=== PATIENT | female | born 2005 | race Two or more races ===

== ENCOUNTER 2025-03-03 20:36 | Emergency (ER) | payer OTHER ==
[2025-03-03] MEDS ORDERED: KETOROLAC TROMETHAMINE 30 MG VIAL ONE (21:12)
[2025-03-03] MEDS ORDERED: ONDANSETRON HCL 2 MG/ML VIAL ONE (21:12)
[2025-03-03] MEDS ORDERED: ONDANSETRON HCL 2 MG/ML VIAL IV ONE (21:15)
[2025-03-03] MEDS ORDERED: 0.9 % SODIUM CHLORIDE 1,000 ML IV SCH (21:15)
[2025-03-03] MEDS ORDERED: KETOROLAC TROMETHAMINE 30 MG VIAL IV ONE (21:15)
[2025-03-03 21:34] LABS: HEMATOCRIT 39.2 % (36.0-45.00); HEMOGLOBIN 13.3 g/dL (12.0-15.00); MEAN CORPUSCULAR HEMOGLOBIN 31.4 pg (27.00-32.0); MEAN CORPUSCULAR HGB CONC 33.8 g/dl (32.0-36.0); PLATELET COUNT 187 K/uL (150-450); RED BLOOD COUNT 4.22 M/uL (4.00-6.00); RED CELL DISTRIBUTION WIDTH 13.2 % (11.5-14.5)
[2025-03-03] MEDS ORDERED: MORPHINE SULFATE 4 MG/ML VIAL IV ONE (21:45)
[2025-03-03 22:18] LABS: ALBUMIN 4.2 gm/dL (3.4-5.0); ALKALINE PHOSPHATASE 70 U/L (50-136); ALT/SGPT 14 U/L (12-78); ANION GAP 16 (10.0-20.0); AST/SGOT 12 U/L (15-37); BLOOD UREA NITROGEN 10 mg/dL (7-18); BUN CREA RATIO 9 (7.0-25.0); CALCIUM 9.3 mg/dL (8.5-10.1); CARBON DIOXIDE 23 mEq/L (21-32); CHLORIDE 108 mmol/L (98-107); CREATININE SERUM 1.12 mg/dL (0.55-1.02); GFR 61.41; GLOBULINA 3.5 G/DL (2.4-3.5); GLUCOSE FASTING 137 mg/dL (65-100); OSMOLALITY SERUM 286 MOSM/KG (275-295); POTASSIUM 3.59 mEq/L (3.5-5.1); SODIUM 143 mmol/L (136-145); TOTAL PROTEIN 7.7 gm/dL (6.4-8.2)
[2025-03-03 22:19] LABS: HCG QUANTITATIVE < 1 mUI/mL (1-3)
[2025-03-03] MEDS ORDERED: KETO10TA2 PO (23:26)
[2025-03-03] MEDS ORDERED: CEPHALEXIN500 M1 PO (23:26)
[2025-03-03] MEDS ORDERED: TAMS0.4C PO (23:26)
[2025-03-03] MEDS ORDERED: TAMSULOSIN HCL 0.4 MG CAP PO ONE ×2 (23:29→23:30)
[2025-03-04] MEDS ORDERED: MORPHINE SULFATE 4 MG/ML VIAL IV STA (00:37)
[2025-03-04] MEDS ORDERED: SODIUM CHLORIDE 0.45 % 500 ML IV ONE (00:45)
[2025-03-04] MEDS ORDERED: PEPCID40 MG PO (04:31)
== END 2025-03-04 05:00 | disposition home or self-care (01) ==
LOC: ER 20:37
PROVIDERS: General Practice
DX: R10.9 Unspecified abdominal pain (principal); R10.2 Pelvic and perineal pain